=== PATIENT | female | born 1960 | race Caucasian/White ===

== ENCOUNTER 2019-08-26 01:22 | Emergency (ER) | payer OTHER ==
[2019-08-26 02:18] VITALS: TEMP 98; BMI 17.9
--- NOTE | 2019-08-26 02:19 | PDOC ---
Attending Attestation - Resident Resident Name: Blayne Rios - ED Attending Attestation I have performed the following: I have examined & evaluated the patient, The case was reviewed & discussed with the resident, I agree w/resident's findings & plan - HPI HPI: 08/26/19 02:19 see resident hpi - Physicial Exam PE: 08/26/19 02:19 agree with resident exam - Medical Decision Making 08/26/19 02:19 59-year-old female status post fall several days ago with knee pain Plan for x-ray and discharge home with outpatient primary follow-up
[2019-08-26] MEDS ORDERED: ACETAMINOPHEN 500 MG TABLET (FP) PO ONE (03:05)
--- NOTE | 2019-08-26 03:05 | PDOC ---
History of Present Illness - General Chief Complaint: Injury Stated Complaint: FALL, PAIN Time Seen by Provider: 08/26/19 02:07 - History of Present Illness Initial Comments: 08/29/19 22:04 HPI: 59F PMH "GI issues," HTN, vertigo presenting 3 days after a trip and fall. 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 Hit knees and hands. Declined EMS and hospital at the time. Visiting today due to unresolving pain of the right knee. Has tried advil for pain but cautious 2/2 GI issues. Denies changes in vision/hearing, numbness, tingling, weakness. PMH as above PCP Colt HINES Past History - Past Medical History Allergies/Adverse Reactions: Allergies Allergy/AdvReac Type Severity Reaction Status Date / Time No Known Allergies Allergy Verified 08/26/19 02:18 Home Medications: Ambulatory Orders Dicyclomine HCl [Bentyl -] 10 mg PO DAILY 03/08/12 Loratadine [Claritin] 10 mg PO DAILY 03/08/12 Montelukast Na [Singulair -] 10 mg PO DAILY 03/08/12 Amox-Tr/K Cl [Augmentin 500Mg Tablet] 1 tab PO BID #10 tablet 01/18/15 Losartan/Hydrochlorothiazide [Losartan-Hctz 50-12.5 mg Tab] 1 each PO DAILY Tramadol HCl 50 mg PO Q4HWA #20 tablet 01/19/15 Asthma: Yes (SEASONAL) Cancer: Yes (LT BREAST) GI Disorders: Yes (REFLUX/CONSTIPATION) HTN: Yes - Immunization History Immunization Up to Date: No - Psycho Social/Smoking Cessation Hx Smoking Status: No Smoking History: Never smoked Number of Cigarettes Smoked Daily: 0 Information on smoking cessation initiated: No Hx Alcohol Use: No Drug/Substance Use Hx: No Substance Use Type: None Hx Substance Use Treatment: No Review of Systems - Review of Systems Comments:: 08/29/19 22:04 ROS: CONSTITUTIONAL: Denies F / C HEENT: Denies headache, lightheadedness, dizziness, changes in vision / hearing RESP: Denies SOB CARD: Denies chest pain, palpitations GI: Denies N / V / D, abdominal pain, bloody stool, inability to tolerate PO : Denies dysuria, hematuria, frequency SKIN: Denies rashes NEURO: Denies numbness, tingling, weakness MSK: Endorses right knee pain. *Physical Exam - Vital Signs Last Vital Signs Temp Pulse Resp BP Pulse Ox 98 F 64 18 150/98 98 08/26/19 01:45 08/26/19 01:45 08/26/19 01:45 08/26/19 01:45 08/26/19 01:45 - Physical Exam 08/29/19 22:04 PE: GEN: Well appearing, NAD, comfortable. AAOx3 HEENT: NC/AT, CN II-XII intact, EOMI, PERRLA. No facial asymmetry. Moist mucous membranes. Normal voice. Supple neck w/ FROM w/o midline TTP. There is paraspinal trap. m. soreness on the right. CV: S1/S2, RRR, no m/r/g LUNG: CTAB, no wheezes, crackles, rales, rhonchi. GI: soft, ndnt, +BS, no guarding, no rebound. No masses. EXTREMITIES: 2+ distal pulses. No LE edema. No obvious deformities of all extremities. +TTP of the right knee. FROM of the b/l wrists. SKIN: warm, dry, normal turgor. There is bruising to the lateral aspect of the right knee. PSYCH: normal mood and affect NEURO: Moving all extremities well. Assessment of strength limited 2/2 effort. Ambulates w/ a limp on the RLE. Appropriate strenght of the UE and LEs. Sensation symmetric. BACK: no TTP midline, no step offs, no bony deformities, no signs of trauma. Medical Decision Making - Medical Decision Making 08/26/19 04:28 MDM: 59F presenting 3 days after trip and fall. c/o right knee pain. - XR R knee - DC home w/ PCP f/u XR of r knee neg for fracture per ED team read DC as above Discharge - Discharge Information Problems reviewed: Yes Clinical Impression/Diagnosis: Pain Condition: Fair Disposition: HOME - Admission No - Follow up/Referral Referrals: Blayne Quach MD [Staff Physician] - Colt Welch MD [Primary Care Provider] - - Patient Discharge Instructions Patient Printed Discharge Instructions: DI for Knee Pain Additional Instructions: There was no fracture in your knee. Please use ice on your knee as needed for the pain and Tylenol as well. Please follow up with the orthopedic surgeon if you are still having pain. Please return to the ED if you have new or worsening symptoms. - Post Discharge Activity
[2019-08-26] MEDS ORDERED: DIPHTH,PERTUSS(ACELL),TET 0.5 ML DISP.SYRIN IM ONE ×2 (03:13→03:19)
[2019-08-26] MEDS ORDERED: ACETAMINOPHEN 325 MG TABLET (FP) ONE (03:18)
[2019-08-26 04:10] VITALS: BP 145/93; PULSE 62
== END 2019-08-26 04:07 | disposition home or self-care (01) ==
LOC: JER 01:22
PROC: 3E0234Z Introduction of Serum, Toxoid and Vaccine into Muscle, Percutaneous Approach (ICD-10-PCS; principal; 2019-08-26)
DX: M25.561 Pain in right knee (principal); W01.0XXA Fall on same level from slipping, tripping and stumbling without subsequent striking against object, initial encounter; Y93.89 Activity, other specified; Y92.480 Sidewalk as the place of occurrence of the external cause; Y99.8 Other external cause status
CPT/HCPCS: 73560-TC-RT-FY; 90715; 99282-25

== ENCOUNTER 2021-05-17 04:37 | Emergency (ER) | payer OTHER ==
[2021-05-17 05:10] VITALS: BP 156/94; PULSE 69; TEMP 97.8; BMI 21.1
[2021-05-17] MEDS ORDERED: ACETAMINOPHEN 325 MG TABLET (FP) PO ONE (05:11)
[2021-05-17] MEDS ORDERED: ACETAMINOPHEN 325 MG TABLET (FP) ONE (05:12)
== END 2021-05-17 06:37 | disposition home or self-care (01) ==
LOC: JER 04:37
DX: S00.83XA Contusion of other part of head, initial encounter (principal); S16.1XXA Strain of muscle, fascia and tendon at neck level, initial encounter; W06.XXXA Fall from bed, initial encounter
CPT/HCPCS: 70450-TC; 70486-TC; 72125-TC; 72128-TC; 99284-25

== ENCOUNTER 2021-12-14 | Emergency (ER) | payer OTHER ==
[2021-12-14 00:16] VITALS: BP 161/100; PULSE 75; TEMP 98; BMI 19.5
[2021-12-14] MEDS ORDERED: ACETAMINOPHEN 500 MG TABLET (FP) PO ONE (01:42)
[2021-12-14] MEDS ORDERED: KETOROLAC TROMETHAMINE 30 MG/1 ML VIAL IM ONE (01:43)
[2021-12-14] MEDS ORDERED: LIDOCAINE 5% TOPICAL PATCH TP ONE (01:43)
[2021-12-14] MEDS ORDERED: LIDOCAINE 5% TOPICAL PATCH ONE (01:46)
[2021-12-14] MEDS ORDERED: ACETAMINOPHEN 325 MG TABLET (FP) ONE (01:46)
[2021-12-14] MEDS ORDERED: KETOROLAC TROMETHAMINE 30 MG/1 ML VIAL ONE (01:46)
[2021-12-14] MEDS ORDERED: LIDOCAINE PATCH REMOVAL MC SCH (22:00)
== END 2021-12-14 04:25 | disposition home or self-care (01) ==
LOC: JER
PROC: 3E023GC Introduction of Other Therapeutic Substance into Muscle, Percutaneous Approach (ICD-10-PCS; principal; 2021-12-14)
DX: R51.9 Headache, unspecified (principal); M25.531 Pain in right wrist; M25.532 Pain in left wrist; V49.40XA Driver injured in collision with unspecified motor vehicles in traffic accident, initial encounter
CPT/HCPCS: 71046-TC-FY; 73110-TC-LT-FY; 73110-TC-RT-FY; 73130-TC-LT-FY; 73130-TC-RT-FY; 99284-25

== ENCOUNTER 2022-02-16 17:44 | Emergency (ER) | payer OTHER ==
[2022-02-16 17:57] VITALS: BP 122/90; PULSE 74; TEMP 98.3; BMI 19.5
== END 2022-02-16 22:30 | disposition home or self-care (01) ==
LOC: JER 17:44
DX: R09.81 Nasal congestion (principal); J02.9 Acute pharyngitis, unspecified; R05.1 Acute cough
CPT/HCPCS: 0241U-QW; 99283-25

== ENCOUNTER 2022-03-18 22:22 | Emergency (ER) | payer OTHER ==
[2022-03-18 22:31] VITALS: BP 143/89; PULSE 86; TEMP 100.6; BMI 18.5
[2022-03-19] MEDS ORDERED: ACETAMINOPHEN 1000 MG/100 ML BAG IVPB ONE (01:04)
[2022-03-19] MEDS ORDERED: SODIUM CHLORIDE 0.9% 500 ML INFUS.BAG IV ONE (01:04)
[2022-03-19] MEDS ORDERED: ACETAMINOPHEN INJECTION 100 ML IVPB ONE (01:57)
[2022-03-19 02:28] LABS: BASO % 0.6 % (0-2.0); HEMATOCRIT 35.9 % (32.4-45.2); HEMOGLOBIN 12.6 GM/dL (10.7-15.3); LYMPH % 22.1 % (8-40); MCH 31.2 pg (25.7-33.7); MEAN CELL VOLUME 89.1 fl (80-96); MEAN PLT VOLUME 7.5 fl (7.5-11.1); MONO % 11.3 % (3.8-10.2); PLATELET COUNT 193 10^3/uL (134-434); RBC 4.03 M/mm3 (3.60-5.2); RDW 11.9 % (11.6-15.6); WHITE BLOOD COUNT 6.1 K/mm3 (4.0-10.0)
[2022-03-19 02:50] LABS: ALBUMIN 4.4 g/dl (3.4-5.0); CALCIUM 8.8 mg/dL (8.5-10.1)
[2022-03-19 02:51] LABS: BLOOD UREA NITROGEN 11.1 mg/dL (7-18)
[2022-03-19 02:53] LABS: CREATININE 0.7 mg/dL (0.55-1.3)
[2022-03-19 03:16] LABS: BILIRUBIN,TOTAL 0.5 mg/dL (0.2-1); TOT PROT 8.2 g/dl (6.4-8.2)
[2022-03-19] MEDS ORDERED: POTASSIUM CHLORIDE TABS 20 MEQ TABLET.ER (FP) PO ONE (03:28)
[2022-03-19] MEDS ORDERED: POTASSIUM CHLORIDE ORAL LIQUID 20 MEQ/15 ML ONE (04:01)
== END 2022-03-19 05:44 | disposition home or self-care (01) ==
LOC: JER 22:22
PROC: 3E0333Z Introduction of Anti-inflammatory into Peripheral Vein, Percutaneous Approach (ICD-10-PCS; principal; 2022-03-18)
DX: U07.1 COVID-19 (principal)
CPT/HCPCS: 0241U-QW; 36415; 71045-TC-FY; 80053; 85025; 99284-25

== ENCOUNTER 2022-05-21 19:41 | Emergency (ER) | payer OTHER ==
[2022-05-21 20:07] VITALS: BP 106/71; PULSE 71; RESP 20; TEMP 98.4; BMI 17.7
== END 2022-05-21 21:16 | disposition home or self-care (01) ==
LOC: JERFT 19:41
DX: S61.201A Unspecified open wound of left index finger without damage to nail, initial encounter (principal); Y99.9 Unspecified external cause status
CPT/HCPCS: 99281-25

== ENCOUNTER 2022-07-14 00:52 | Emergency (ER) | payer OTHER ==
[2022-07-14 01:03] VITALS: BP 116/82; PULSE 68; RESP 20; BMI 18.1
[2022-07-14] MEDS ORDERED: ACETAMINOPHEN 500 MG TABLET (FP) PO ONE (01:48)
[2022-07-14] MEDS ORDERED: ACETAMINOPHEN 325 MG TABLET (FP) ONE (01:57)
== END 2022-07-14 03:26 | disposition home or self-care (01) ==
LOC: JER 00:52
DX: M79.642 Pain in left hand (principal)
CPT/HCPCS: 73130-TC-LT-FY; 99284-25

== ENCOUNTER 2023-01-30 06:43 | Emergency (ER) | payer OTHER ==
[2023-01-30 07:00] VITALS: BMI 18.9
[2023-01-30] MEDS ORDERED: LOSARTAN 50MG/HCTZ 12.5MG 1 TAB PO ONE (07:54)
[2023-01-30 08:35] LABS: BASO % 0.8 % (0-2.0); EOS % 1.1 % (0-4.5); HEMATOCRIT 36.3 % (32.4-45.2); HEMOGLOBIN 13.1 GM/dL (10.7-15.3); LYMPH % 32.3 % (8-40); MCH 31.5 pg (25.7-33.7); MEAN CELL VOLUME 87.4 fl (80-96); MEAN PLT VOLUME 7.9 fl (7.5-11.1); NEUT % 57.8 % (42.8-82.8); PLATELET COUNT 238 10^3/uL (134-434); RBC 4.16 M/mm3 (3.60-5.2); RDW 12.1 % (11.6-15.6); WHITE BLOOD COUNT 5.4 K/mm3 (4.0-10.0)
[2023-01-30 08:51] LABS: POTASSIUM 4.1 mmol/L (3.5-5.1)
[2023-01-30 08:54] LABS: ALBUMIN 3.8 g/dl (3.4-5.0); BLOOD UREA NITROGEN 18.2 mg/dL (7-18); CALCIUM 8.9 mg/dL (8.5-10.1)
[2023-01-30 08:57] LABS: BILIRUBIN,DIRECT 0.1 mg/dL (0.0-0.2); CREATININE 0.7 mg/dL (0.55-1.3)
[2023-01-30 08:59] LABS: BILIRUBIN,TOTAL 0.3 mg/dL (0.2-1); TOT PROT 7.4 g/dl (6.4-8.2)
[2023-01-30 10:06] VITALS: BP 152/95; PULSE 58; RESP 19; TEMP 97.8
== END 2023-01-30 10:19 | disposition home or self-care (01) ==
LOC: JERFT 06:43 → JER 06:43 → JERFT 10:19
DX: M25.562 Pain in left knee (principal); R42 Dizziness and giddiness; S80.212A Abrasion, left knee, initial encounter; W10.1XXA Fall (on)(from) sidewalk curb, initial encounter; Y92.480 Sidewalk as the place of occurrence of the external cause
CPT/HCPCS: 36415; 73562-TC-LT-FY; 80048; 80076; 82550; 84484; 85025; 93005; 93010; 99285-25

== ENCOUNTER 2023-02-16 17:45 | Emergency (ER) | payer OTHER ==
[2023-02-16 17:49] VITALS: BP 124/77; PULSE 69; RESP 18; TEMP 98.5; BMI 18.3
[2023-02-16] MEDS ORDERED: ACETAMINOPHEN 500 MG TABLET (FP) PO ONE (18:31)
[2023-02-16] MEDS ORDERED: ACETAMINOPHEN 500 MG TABLET (FP) ONE (18:51)
== END 2023-02-16 19:26 | disposition home or self-care (01) ==
LOC: JERFT 17:45
DX: S60.012A Contusion of left thumb without damage to nail, initial encounter (principal); M79.645 Pain in left finger(s); W23.1XXA Caught, crushed, jammed, or pinched between stationary objects, initial encounter; Y93.9 Activity, unspecified; Y92.009 Unspecified place in unspecified non-institutional (private) residence as the place of occurrence of the external cause
CPT/HCPCS: 73140-TC-LT-FY; 99283-25

== ENCOUNTER 2023-02-24 | Emergency (ER) | payer OTHER ==
[2023-02-24 00:13] VITALS: BP 130/82; PULSE 72; RESP 18; TEMP 98.4; BMI 18.1
[2023-02-24] MEDS ORDERED: AMOX TR/POT CLAV 875MG/125MG TABLETS (FP) PO ONE (00:56)
[2023-02-24] MEDS ORDERED: AMOX TR/POT CLAV 875MG/125MG TABLETS (FP) ONE (01:07)
[2023-02-24] MEDS ORDERED: ACETAMINOPHEN 500 MG TABLET (FP) ONE (01:09)
[2023-02-24] MEDS ORDERED: ACETAMINOPHEN 500 MG TABLET (FP) PO ONE (01:12)
== END 2023-02-24 01:13 | disposition home or self-care (01) ==
LOC: JER
PROC: 0HQQXZZ Repair Finger Nail, External Approach (ICD-10-PCS; principal; 2023-02-24)
DX: S60.112A Contusion of left thumb with damage to nail, initial encounter (principal); M79.645 Pain in left finger(s); L60.9 Nail disorder, unspecified; M79.89 Other specified soft tissue disorders; M25.60 Stiffness of unspecified joint, not elsewhere classified; W23.0XXA Caught, crushed, jammed, or pinched between moving objects, initial encounter; Y93.9 Activity, unspecified; Y92.810 Car as the place of occurrence of the external cause
CPT/HCPCS: 99283-25

== ENCOUNTER 2023-10-01 22:50 | Observation (INO) | payer OTHER ==
[2023-10-01 23:00] VITALS: BMI 18.5
[2023-10-02 00:23] LABS: BASO % 0.7 % (0-2.0); EOS % 1.2 % (0-4.5); HEMATOCRIT 37.7 % (32.4-45.2); HEMOGLOBIN 13.3 GM/dL (10.7-15.3); LYMPH % 39.2 % (8-40); MCH 31.9 pg (25.7-33.7); MCHC 35.4 g/dl (32.0-36.0); MEAN CELL VOLUME 90.2 fl (80-96); MEAN PLT VOLUME 7.5 fl (7.5-11.1); NEUT % 49.9 % (42.8-82.8); PLATELET COUNT 246 10^3/uL (134-434); RBC 4.18 M/mm3 (3.60-5.2); WHITE BLOOD COUNT 6.3 K/mm3 (4.0-10.0)
[2023-10-02 00:36] LABS: INR 1.05 (0.83-1.09); PROTHROMBIN TIME (PATIENT) 12.2 SEC (9.7-13.0)
[2023-10-02 00:38] LABS: ACTIVATED PTT 31.1 SECONDS (25.2-36.5)
[2023-10-02 00:41] LABS: POTASSIUM 3.5 mmol/L (3.5-5.1)
[2023-10-02 00:43] LABS: ALBUMIN 3.9 g/dl (3.4-5.0); BLOOD UREA NITROGEN 19.8 mg/dL (7-18); CALCIUM 9.9 mg/dL (8.5-10.1)
[2023-10-02 00:46] LABS: CREATININE 0.6 mg/dL (0.55-1.3)
[2023-10-02 00:48] LABS: BILIRUBIN,TOTAL 0.6 mg/dL (0.2-1); TOT PROT 7.6 g/dl (6.4-8.2)
[2023-10-02 00:51] LABS: N-TERMINAL BNP 27.3 pg/ml (5-125)
[2023-10-02] MEDS ORDERED: ACETAMINOPHEN 500 MG TABLET (FP) PO ONE (03:36)
[2023-10-02] MEDS ORDERED: ACETAMINOPHEN 325 MG TABLET (FP) ONE (04:00)
[2023-10-02 06:44] LABS: HEMATOCRIT 33.6 % (32.4-45.2); HEMOGLOBIN 11.8 GM/dL (10.7-15.3); MCH 31.6 pg (25.7-33.7); MCHC 35.1 g/dl (32.0-36.0); MEAN PLT VOLUME 7.9 fl (7.5-11.1); PLATELET COUNT 224 10^3/uL (134-434); RBC 3.73 M/mm3 (3.60-5.2); RDW 11.9 % (11.6-15.6); WHITE BLOOD COUNT 5.1 K/mm3 (4.0-10.0)
[2023-10-02 07:04] LABS: POTASSIUM 3.4 mmol/L (3.5-5.1)
[2023-10-02 07:07] LABS: CALCIUM 8.8 mg/dL (8.5-10.1)
[2023-10-02 07:08] LABS: ALBUMIN 3.4 g/dl (3.4-5.0); BLOOD UREA NITROGEN 19.8 mg/dL (7-18); MAGNESIUM 2.3 mg/dL (1.8-2.4)
[2023-10-02 07:11] LABS: CREATININE 0.6 mg/dL (0.55-1.3); PHOSPHOROUS 4.4 mg/dL (2.5-4.9)
[2023-10-02 07:12] LABS: TOT PROT 6.5 g/dl (6.4-8.2)
[2023-10-02 07:18] LABS: BILIRUBIN,TOTAL 0.7 mg/dL (0.2-1)
[2023-10-02] MEDS ORDERED: PANTOPRAZOLE 20 MG TABLET PO ONE (13:36)
[2023-10-02] MEDS: PANTOPRAZOLE 20 MG TABLET PO SCH (13:40)
[2023-10-02] MEDS: MELATONIN 5 MG TABLETS PO SCH (21:44)
[2023-10-02] MEDS ORDERED: PRAMIPEXOLE DIHYDROCHLORIDE 0.25 MG TABLET PO SCH (22:00)
[2023-10-02] MEDS: ACETAMINOPHEN 500 MG TABLET (FP) PO PRN (22:58)
[2023-10-03 07:43] LABS: BASO % 0.5 % (0-2.0); EOS % 1.9 % (0-4.5); HEMATOCRIT 32.5 % (32.4-45.2); HEMOGLOBIN 11.7 GM/dL (10.7-15.3); LYMPH % 44.1 % (8-40); MCH 32.3 pg (25.7-33.7); MCHC 36.1 g/dl (32.0-36.0); MEAN CELL VOLUME 89.4 fl (80-96); MEAN PLT VOLUME 7.7 fl (7.5-11.1); MONO % 10.2 % (3.8-10.2); NEUT % 43.3 % (42.8-82.8); PLATELET COUNT 211 10^3/uL (134-434); RBC 3.64 M/mm3 (3.60-5.2); RDW 11.9 % (11.6-15.6); WHITE BLOOD COUNT 3.8 K/mm3 (4.0-10.0)
[2023-10-03 07:44] LABS: POTASSIUM 4.2 mmol/L (3.5-5.1)
[2023-10-03 08:15] LABS: ALBUMIN 3.2 g/dl (3.4-5.0); BLOOD UREA NITROGEN 25.9 mg/dL (7-18); MAGNESIUM 2.2 mg/dL (1.8-2.4)
[2023-10-03 08:18] LABS: CREATININE 0.6 mg/dL (0.55-1.3); PHOSPHOROUS 4.2 mg/dL (2.5-4.9)
[2023-10-03 08:20] LABS: BILIRUBIN,TOTAL 0.5 mg/dL (0.2-1); TOT PROT 6.3 g/dl (6.4-8.2)
[2023-10-03] MEDS: PANTOPRAZOLE 20 MG TABLET PO SCH (09:35)
[2023-10-03] MEDS: ENOXAPARIN NA (PORCINE) 40 MG/0.4 ML DISP.SYRIN SQ SCH (09:36)
[2023-10-03] MEDS: LOSARTAN 50MG/HCTZ 12.5MG 1 TAB PO SCH (09:36)
[2023-10-03] MEDS ORDERED: PATIENT'S OWN MEDICATION (NON-FORMULARY) (Linaclotide [Linzess] 72 MCG Capsule) PO SCH (10:00)
[2023-10-03 19:07] VITALS: RESP 18
[2023-10-03] MEDS: MELATONIN 5 MG TABLETS PO SCH ×2 (22:41→23:31)
[2023-10-03] MEDS: ACETAMINOPHEN 500 MG TABLET (FP) PO PRN (23:31)
[2023-10-04] MEDS: ENOXAPARIN NA (PORCINE) 40 MG/0.4 ML DISP.SYRIN SQ SCH (09:31)
[2023-10-04] MEDS: LOSARTAN 50MG/HCTZ 12.5MG 1 TAB PO SCH (09:31)
[2023-10-04] MEDS: PANTOPRAZOLE 20 MG TABLET PO SCH (09:31)
[2023-10-04 15:20] VITALS: BP 133/66; PULSE 69; TEMP 98.1
== END 2023-10-04 17:39 | disposition home or self-care (01) ==
LOC: JER 22:50 → JERBED 10-02 03:37 → J4W 10-02 14:46
PROVIDERS: ADMIT Internal Medicine; ATTEND Internal Medicine
PROC: 3E023GC Introduction of Other Therapeutic Substance into Muscle, Percutaneous Approach (ICD-10-PCS; principal; 2023-10-02)
DX: I10 Essential (primary) hypertension (principal); K21.9 Gastro-esophageal reflux disease without esophagitis; R07.9 Chest pain, unspecified; J45.998 Other asthma; Z85.3 Personal history of malignant neoplasm of breast
CPT/HCPCS: 0241U-QW; 36415; 71045-TC-FY; 80053; 83735; 83880; 84100; 84484; 85025; 85027; 85610; 85730; 93005; 93010; 93306-TC; 93970-TC; 96372; 99285-25; G0378

== ENCOUNTER 2025-01-29 22:58 | Emergency (ER) | payer OTHER ==
[2025-01-29 23:07] VITALS: BP 150/88; PULSE 64; RESP 18; TEMP 98.3; BMI 17.6
[2025-01-29] MEDS ORDERED: ACETAMINOPHEN 325 MG TABLET (FP) ONE (23:34)
[2025-01-29] MEDS: ACETAMINOPHEN 500 MG TABLET (FP) PO ONE (23:36)
== END 2025-01-30 01:24 | disposition home or self-care (01) ==
LOC: JER 22:58
DX: M25.531 Pain in right wrist (principal); M25.532 Pain in left wrist; M25.561 Pain in right knee; M25.562 Pain in left knee; M54.50 Low back pain, unspecified; W01.0XXA Fall on same level from slipping, tripping and stumbling without subsequent striking against object, initial encounter
CPT/HCPCS: 70450-TC; 72125-TC; 72131-TC; 72170-TC-FY; 73560-TC-LT-FY; 73560-TC-RT-FY; 99284-25